=== PATIENT | female | born 1940 | race Caucasian/White ===

== ENCOUNTER 2019-04-16 10:20 | Day surgery (SDC) | payer MEDICARE ==
[2019-04-15 10:45] LABS: BASOPHILS % (AUTO) 0.9 % (0.0-5.0); EOSINOPHILS % (AUTO) 4.6 % (0.0-8.0); HEMATOCRIT 38.5 % (36-48); LYMPHOCYTES % (AUTO) 29.6 % (21.0-51.0); MEAN CORPUSCULAR HEMOGLOBIN 28.6 pg (27.0-33.0); MEAN CORPUSCULAR HGB CONC 32.7 g/dL (32.0-36.0); MEAN CORPUSCULAR VOLUME 87.3 fL (79-99); MONOCYTES % (AUTO) 8.2 % (3.0-13.0); NEUTROPHILS % (AUTO) 56.4 % (40.0-77.0); PLATELET COUNT (AUTO) 311 K/uL (130-400); RED BLOOD CELL COUNT(AUTO) 4.41 MIL/uL (4.00-5.50); WHITE BLOOD COUNT (AUTO) 6.9 K/uL (4.8-10.8)
[2019-04-15 11:00] LABS: POTASSIUM 3.9 mmol/L (3.5-5.1)
[2019-04-15 11:14] VITALS: BP 169/75
--- NOTE | 2019-04-15 11:53 | NUR ---
PER DR. STERN ABNORMAL EKG IS OK.
[2019-04-16] VITALS (12 sets, daily range): BP systolic 134–160; BP diastolic 57–82
[~2019-04-16] VITALS: Ht 157.5 cm; Wt 91.2 kg
[~2019-04-16 10:20] MED LIST: CHOL200079 PO; ESTRADIOL VAGINAL CR VG; LEVO75 PO; LOSA1TAB42 PO; METO-408 PO; OMEP20CA12 PO; SODIUM CHLORIDE 0.9% 1000ML 1,000 ML IV SCH
[2019-04-16] MEDS ORDERED: LACTATED RINGERS 1000ML 1,000 ML IV ONE (11:00)
[2019-04-16] MEDS: CLINDAMYCIN 900 MG/D5% WATER 50 ML IV SCH ×2 (11:00→12:05)
[2019-04-16] MEDS ORDERED: NYST15CR TP (11:30)
[2019-04-16] MEDS ORDERED: FENTANYL CITRATE PF 50 MCG/1 ML 2ML VIAL ONE ×2 (12:06→12:42)
[2019-04-16] MEDS ORDERED: LIDOCAINE PF 2% 5ML ABBOJECT ONE (12:06)
[2019-04-16] MEDS ORDERED: PROPOFOL 10 MG/ML 20ML VIAL IV ONE (12:06)
[2019-04-16] MEDS ORDERED: ROCURONIUM 10MG/1ML SYR 10 MG/ML ML ONE (12:06)
[2019-04-16] MEDS ORDERED: BUPIVACAINE/PF 0.5% 30ML VIAL ONE (12:10)
[2019-04-16] MEDS ORDERED: EPHEDRINE SULFATE 50 MG/ML AMPULE ONE (12:24)
[2019-04-16] MEDS ORDERED: GLYCOPYRROLATE 1 MG/5 ML SYRINGE ONE (12:32)
[2019-04-16] MEDS ORDERED: DEXAMETHASONE SOD PHOSPHATE 10MG/ML 1ML VIAL ONE (12:32)
[2019-04-16] MEDS ORDERED: NEOSTIGMINE 5MG/5ML SYR IV ONE (12:32)
[2019-04-16] MEDS ORDERED: ONDANSETRON HCL 4 MG/2 ML VIAL ONE (12:32)
--- NOTE | 2019-04-16 14:07 | NUR ---
post received pt from [facility], s/p alexa dsouza. dressing x 4 (small) dry and intact, pt awake and alert ,no distress noted; pt denied any pain or discomforts. plan of care discuss with patient / spouse. call light within reach. vs stable on arrival.
--- NOTE | 2019-04-16 14:45 | NUR ---
dc pt dc home via [facility], no distress noted. pt accompanied by spouse. pt denied any pain or discomforts
== END 2019-04-16 14:45 | disposition home or self-care (01) ==
LOC: DAH 10:20
PROVIDERS: ATTEND Student in an Organized Health Care Education/Training Program
DX: K80.10 Calculus of gallbladder with chronic cholecystitis without obstruction (principal); I44.7 Left bundle-branch block, unspecified; I10 Essential (primary) hypertension; K21.9 Gastro-esophageal reflux disease without esophagitis; E66.01 Morbid (severe) obesity due to excess calories; E03.9 Hypothyroidism, unspecified; Z88.0 Allergy status to penicillin; Z79.899 Other long term (current) drug therapy; Z90.710 Acquired absence of both cervix and uterus; Z98.890 Other specified postprocedural states; Z68.34 Body mass index [BMI] 34.0-34.9, adult
CPT/HCPCS: 36415; 47562; 80048; 85025; 88304; 93005; A4215; A4221; A4222; A4223; A4450; A4600; A4649 ×3; A4663; A4930; A6206; A6260; C1769 ×3; C1894; G0168; J1100; J2001; J2405; J2704; J2710; J3010 ×2; J3490 ×4; J7030 ×2; J7120 ×2